=== PATIENT | female | born 1945 | race Caucasian/White ===

== ENCOUNTER 2016-05-11 04:31 | Emergency (ER) | payer MEDICARE ==
--- NOTE | 2016-05-11 05:24 | ERPHSYRPT ---
- History of Present Illness Time Seen by Provider: 05/11/16 04:42 Source: patient Exam Limitations: no limitations Patient Subjective Stated Complaint: PT FELL FROM STANDING HEIGHT ONTO FLOOR STRIKING RT SHOULDER AND RT HIP. PT STS PAIN IN RT SHOULDER AND RT HIP. PT RATES PAIN 8/10. PT RECENTLY FELL AND INJURED LEFT SHOULDER AND LEFT HIP APPROX 1 MONTH AGO. Triage Nursing Assessment: PT ALERT, ORIENTED, ANSWERS ALL QUESITONS APPROPRIATELY. SKIN P/W/D, RESPS NON-LABORED. SPO2 90% ROOM AIR, PT PLACED ON 2LO2 PER NC AT TRIAGE, SPO2 INCREASED TO 96%. DEFORMITY NOTED TO RT SHOULER. PAIN UPON PALPATION POSTERIOR RT SHOULDER. + RADIAL PULSE NOTED, CAPILLARY REFILL LESS THAN 3 SECONDS. PT ABLE TO MOVE FINGERS. NO OBVIOUS SHORTENING OR ROTATION NOTED TO RT LEG. PT ABLE TO MOVE FOOT, TOES. + PEDAL PULSES NOTED BILAT. Physician History: ABOUT 30 MINUTES AGO PT [facility] AND WAS WALKING TO THE BATHROOM WHEN HER RIGHT LEG "GAVE OUT" AND SHE FELL HITTING HER RIGHT SHOULDER AND RIGHT HIP WITH RESULTANT RIGHT SHOULDER, HIP AND KNEE PAIN; DENIES NUMBNESS AND DENIES PRIOR INJURY TO THE RIGHT SHOULDER/HIP/KNEE. PT DENIES LOC, SEIZURE, VOMITING, HEADACHE, CHEST PAIN, SHORTNESS OF AIR. Allergies/Adverse Reactions: ibuprofen Allergy (Verified 05/11/16 06:36) Home Medications: Acetaminophen 325 mg [Tylenol 325 mg] 650 mg PO Q4H PRN PRN 05/11/16 [ History] Albuterol Sulfate [Albuterol Sulfate Hfa] 2 inh IH Q4H PRN PRN 05/11/16 [History ] Amlodipine Besylate 5 mg [Norvasc 5 mg] 5 mg PO DAILY 05/11/16 [History] Aspirin 81 mg PO DAILY 05/11/16 [History] Carvedilol 6.25 mg [Coreg 6.25 MG] 6.25 mg PO BID 05/11/16 [History] Fluticasone/Vilanterol [Breo Ellipta 100-25 Mcg INH] 1 each IH DAILY 05/11/16 [ History] Folic Acid 1 mg PO DAILY 05/11/16 [History] Gabapentin 300 mg PO HS 05/11/16 [History] Glipizide [Glipizide ER] 10 mg PO DAILY 05/11/16 [History] Hydrocodone Bit/Acetaminophen [Hydrocodon-Acetaminophen 5-325] 1 each PO TID [History] Ibandronate Sodium 150 mg PO 05/11/16 [History] Isosorbide Mononitrate [Isosorbide Mononitrate ER] 30 mg PO DAILY 05/11/16 [ History] Magnesium Hydroxide [Milk of Magnesia] 30 ml PO 05/11/16 [History] Metformin HCl 500 mg PO BID 05/11/16 [History] Solifenacin Succinate [Vesicare] 5 mg PO DAILY 05/11/16 [History] Hx Tetanus, Diphtheria Vaccination/Date Given: Yes Hx Influenza Vaccination/Date Given: Yes Hx Pneumococcal Vaccination/Date Given: Yes Immunizations Up to Date: Yes - Review of Systems Musculoskeletal: Other (RIGHT SHOULDER/HIP/KNEE PAIN.) All Other Systems: Reviewed and Negative - Past Medical History Neurological History: Peripheral Neuropathy Cardiac History: Myocardial Infarction (MD) Respiratory History: Asthma, COPD Endocrine Medical History: Diabetes Type II Musculoskeletal History: Osteoarthritis Other Medical History: PT FELL 2014 IN THE KITCHEN AND FRACTURED BACK, L TKA, OAB - Past Surgical History Past Surgical History: Yes Other Surgical History: LEFT SHOULDER, LEFT FEMUR, LEFT TOTAL KNEE - Social History Smoking Status: Never smoker Exposure to second hand smoke: No Drug Use: none Patient Lives Alone: No - Nursing Vital Signs Nursing Vital Signs: Initial Vital Signs Temperature 98.3 F Temperature Source Oral Pulse Rate 80 Respiratory Rate 18 Blood Pressure [] 155/73 Pain Intensity 8 - Azeb Coma Score Best Eye Response (Azeb): (4) open spontaneously Best Verbal Response (Azeb): (5) oriented Best Motor Response ([place]): (6) obeys commands Azeb Total: 15 - Physical Exam General Appearance: alert Head Injury: no evidence of injury Eye Exam: PERRL/EOMI ENT Exam: airway nml, hearing grossly normal Neck Exam: trachea midline, No tenderness Respiratory/Chest Exam: normal breath sounds Cardiovascular Exam: murmur (2/6 SYSTOLIC MURMUR) Gastrointestinal Exam: soft, normal bowel sounds Back Exam: normal inspection, No vertebral tenderness Extremity Exam: tenderness (MILD TENDERNESS OVER THE RIGHT SHOULDER AND KNEE WITH MILD EDEMA OF THE RIGHT SHOULDER.), other (NO ROM OF THE RIGHT SHOULDER; FLEXION OF THE RIGHT HIP AND KNEE LIMITED TO 50%. GOOD SENSATION, CAPILLARY REFILL AND ROM OF THE RIGHT FOOT AND RIGHT HAND.) Neurologic Exam: alert, cooperative Skin Exam: warm, dry SpO2 Interpretation: borderline oxygenation SpO2: 90 Oxygen Delivery: Room Air - Course Nursing assessment & vital signs reviewed: Yes EKG Interpreted by Me: RATE ([id number]), Sinus Rhythm, NORMAL AXIS, NORMAL INTERVALS - Radiology Exams Right Shoulder X-ray Interpretation: Interpreted by me (FRACTURED PROXIMAL RIGHT HUMERUS) Right Femur X-ray Interpretation: Interpreted by me (SUBCAPITAL FRACTURE OF RIGHT HIP) Right Pelvis X-ray Interpretation: Interpreted by me (SUBCAPITAL FRACTURE OF RIGHT HIP) Right Knee X-ray Interpretation: Interpreted by me, No Fracture Ordered Tests: Active Orders 24 hr Category Date Time Status Cath [Catheter-Holden Foreman] STAT Care 05/11/16 06:35 Active EKG-ER Only STAT Care 05/11/16 05:26 Active IV Insertion STAT Care 05/11/16 05:26 Active Oxygen-ED Only NASAL CANNULA 2 lpm Care 05/11/16 05:28 Active Pulse Oximetry (ED) STAT Care 05/11/16 05:28 Active CHEST 1 VIEW (PORTABLE) Stat Exams 05/11/16 05:27 Ordered FEMUR Stat Exams 05/11/16 04:50 Ordered KNEE (3 VIEWS) Stat Exams 05/11/16 04:50 Ordered PELVIS (1 OR 2 VIEWS) Stat Exams 05/11/16 04:50 Ordered SHOULDER Stat Exams 05/11/16 04:50 Ordered AMYLASE Stat Lab 05/11/16 05:25 Completed CBC W DIFF Stat Lab 05/11/16 05:25 Completed CMP Stat Lab 05/11/16 05:25 Completed LIPASE Stat Lab 05/11/16 05:25 Completed TROPONIN Stat Lab 05/11/16 05:26 Completed UA W/ MICROSCOPIC Stat Lab 05/11/16 06:30 Results Medication Summary Generic Name Dose Route Start Last Admin Trade Name Freq PRN Reason Stop Dose Admin Sodium Chloride 1,000 mls @ 100 mls/hr 05/11/16 05:30 05/11/16 06:25 Sodium Chloride 0.9% 1000 Ml IV 06/10/16 05:29 100 mls/hr .Q10H SUBHASH Administration Discontinued Medications Generic Name Dose Route Start Last Admin Trade Name Freq PRN Reason Stop Dose Admin Sodium Chloride Confirm 05/11/16 06:24 Sodium Chloride 0.9% 1000 Ml Administered 05/11/16 06:25 Dose 1,000 mls @ .ROUTE .[facility] Lab/Rad Data: Laboratory Result Diagrams 05/11/16 05:25 05/11/16 05:25 Laboratory Results 05/11/16 05/11/16 05/11/16 Range/Units 06:30 05:26 05:25 WBC (4.0-10.5) K/mm3 RBC (4.1-5.4) M/mm3 Hgb (12.0-16.0) gm/dl Hct (35-47) % MCV (78-100) fl MCH (26-32) pg MCHC (32-36) g/dl RDW (11.5-14.0) % Plt Count (150-450) K/mm3 MPV (6-9.5) fl Gran % (36.0-66.0) % Lymphocytes % (24.0-44.0) % Monocytes % (0.0-12.0) % Eosinophils % (0.00-5.0) % Basophils % (0.0-0.4) % Basophils # (0-0.4) Sodium 141 (136-145) mEq/L Potassium 4.3 (3.5-5.1) mEq/L Chloride 103 (98-107) mEq/L Carbon Dioxide 26.9 (21-32) mEq/L Anion Gap 15.2 H (5-15) MEQ/L BUN 12 (9-20) mg/dL Creatinine 0.66 (0.55-1.30) mg/dl Estimated GFR > 60 ML/MIN Glucose 134 H (70-110) MG/DL Calcium 9.0 (8.5-10.1) mg/dL Total Bilirubin 0.6 (0.2-1.0) mg/dL AST 14 L (15-37) U/L ALT 16 (12-78) U/L Alkaline Phosphatase 78 (46-116) U/L Troponin I < 0.017 (0.000-0.056) ng/ml Serum Total Protein 7.0 (6.4-8.2) gm/dL Albumin 3.3 L (3.4-5.0) g/dL Amylase 30 (25-115) U/L Lipase 211 (73-393) U/L Ur Collection Type Pending Urine Color Pending Urine Appearance Pending Urine pH Pending Ur Specific [place] Pending Urine Protein Pending Urine Glucose (UA) Pending Urine Ketones Pending Urine Nitrite Pending Urine Bilirubin Pending Urine Urobilinogen Pending Urine WBC (Auto) Pending Urine RBC (Auto) Pending Specimen Received Pending 05/11/16 Range/Units 05:25 WBC 9.1 (4.0-10.5) K/mm3 RBC 4.02 L (4.1-5.4) M/mm3 Hgb 10.1 L (12.0-16.0) gm/dl Hct 34.2 L (35-47) % MCV 85.1 (78-100) fl MCH 25.1 L (26-32) pg MCHC 29.5 L (32-36) g/dl RDW 15.2 H (11.5-14.0) % Plt Count 298 (150-450) K/mm3 MPV 10.0 H (6-9.5) fl Gran % 77.4 H (36.0-66.0) % Lymphocytes % 12.7 L (24.0-44.0) % Monocytes % 9.6 (0.0-12.0) % Eosinophils % 0.2 (0.00-5.0) % Basophils % 0.1 (0.0-0.4) % Basophils # 0.01 (0-0.4) Sodium (136-145) mEq/L Potassium (3.5-5.1) mEq/L Chloride (98-107) mEq/L Carbon Dioxide (21-32) mEq/L Anion Gap (5-15) MEQ/L BUN (9-20) mg/dL Creatinine (0.55-1.30) mg/dl Estimated GFR ML/MIN Glucose (70-110) MG/DL Calcium (8.5-10.1) mg/dL Total Bilirubin (0.2-1.0) mg/dL AST (15-37) U/L ALT (12-78) U/L Alkaline Phosphatase (46-116) U/L Troponin I (0.000-0.056) ng/ml Serum Total Protein (6.4-8.2) gm/dL Albumin (3.4-5.0) g/dL Amylase (25-115) U/L Lipase (73-393) U/L Ur Collection Type Urine Color Urine Appearance Urine pH Ur Specific [place] Urine Protein Urine Glucose (UA) Urine Ketones Urine Nitrite Urine Bilirubin Urine Urobilinogen Urine WBC (Auto) Urine RBC (Auto) Specimen Received - Progress Discussed with .: Other (SPOKE WITH DR DOOLEY(TRAUMA)([id number]) WHO REQUESTS PT BE SENT TO [facility]. SPOKE WITH DR PRECIADO(ER DR)([id number]) WHO ACCEPTED PT FOR TRANSFER TO [facility].) - Departure Time of Disposition: 06:45 Departure Disposition: Transfer ([facility]) Clinical Impression: FRACTURED RIGHT SHOULDER AND RIGHT HIP, COPD, ASTHMA, DM, ARTHRITIS Condition: Fair Critical Care Time: No Referrals: ALFREDA SHOOK [Primary Care Provider] -
[2016-05-11 05:29] LABS: BASOPHIL % 0.1 % (0.0-0.4); Eosinophil % 0.2 % (0.00-5.0); Granulocytes % 77.4 % (36.0-66.0); Lymphocytes % 12.7 % (24.0-44.0); Mean Cell Volume 85.1 fl (78-100); Mean Corpuscular Hemoglobin 25.1 pg (26-32); Monocytes % 9.6 % (0.0-12.0); Platelet Count 298 K/mm3 (150-450); Red Blood Count 4.02 M/mm3 (4.1-5.4); Red Cell Distribution Width 15.2 % (11.5-14.0); White Blood Count 9.1 K/mm3 (4.0-10.5)
[2016-05-11] MEDS ORDERED: Sodium Chloride 0.9% 1000 ML 1,000 ML IV SCH (05:30)
[2016-05-11 05:50] LABS: ALBUMIN 3.3 g/dL (3.4-5.0); ALKALINE PHOSPHATASE 78 U/L (46-116); ANION GAP 15.2 MEQ/L (5-15); BILIRUBIN,TOTAL 0.6 mg/dL (0.2-1.0); BLOOD UREA NITROGEN 12 mg/dL (9-20); CHLORIDE 103 mEq/L (98-107); Carbon Dioxide 26.9 mEq/L (21-32); Glucose 134 MG/DL (70-110); LIPASE 211 U/L (73-393); Potassium 4.3 mEq/L (3.5-5.1); SGOT/AST 14 U/L (15-37); SGPT/ALT 16 U/L (12-78); SODIUM 141 mEq/L (136-145)
[2016-05-11] MEDS ORDERED: Sodium Chloride 0.9% 1000 ML 1,000 ML ONE (06:24)
[2016-05-11 06:38] LABS: Collection Type CATH
[2016-05-11 06:39] LABS: COMPLETE URINE MICROSCOPIC? YES
[2016-05-11 06:42] VITALS: BP 155/73
[2016-05-11 06:45] VITALS: O2SAT 90
[2016-05-11] MEDS ORDERED: Hydromorphone 1 mg/ml Ampule IV ONE (06:45)
[2016-05-11] MEDS ORDERED: Phenergan 25 MG INJ IV ONE (06:45)
[2016-05-11 06:46] VITALS: PULSE 81
[2016-05-11 06:46] LABS: WBC 25-50 /HPF (0-5)
[2016-05-11 06:47] LABS: Bacteria FEW /HPF (NEGATIVE); Epithelial Cells MANY /HPF (FEW)
[2016-05-11] MEDS ORDERED: Phenergan 25 MG INJ ONE (06:48)
[2016-05-11] MEDS ORDERED: Hydromorphone 1 mg/ml Ampule ONE ×2 (06:48→07:07)
[2016-05-11] MEDS ORDERED: ROCEPHIN 1 Gm-D5w 50 ml Bag** 50 ML IV ONE ×2 (06:52→06:53)
--- NOTE | 2016-05-11 09:14 | XRAY ---
Indication: Pain following fall. Comparison: None Single AP right shoulder demonstrates complete humeral neck fracture with the humeral shaft displaced medially. Elsewhere osteopenia, AC degenerative arthropathy, and previous T5 kyphoplasty.
--- NOTE | 2016-05-11 09:16 | XRAY ---
Indication: Pain following fall. Comparison: None 2 views of the right femur demonstrates minimally displaced femur neck acute fracture. Elsewhere osteopenia, acetabular spurring, mild knee degenerative changes, and scattered vascular calcifications.
--- NOTE | 2016-05-11 09:16 | XRAY ---
Indication: Pain following fall. Comparison: None Single AP pelvis demonstrates minimally displaced right femur neck acute fracture. Elsewhere osteopenia, bilateral acetabular spurring, old left proximal femur fracture with intact orthopedic hardware, lower lumbar degenerative changes, and scattered vascular calcifications.
--- NOTE | 2016-05-11 09:19 | XRAY ---
Indication: Pain following fall. Comparison: None 3 views of the right knee intact with mild tricompartmental degenerative changes, osteopenia, and scattered vascular calcifications. No other bony, articular, or soft tissue abnormalities.
--- NOTE | 2016-05-11 09:21 | XRAY ---
Indication: Low oxygenation. Status post fall. Comparison: None Portable chest hyperinflated with a few calcific granulomas. No focal infiltrate, consolidation, or large effusion. Heart is not enlarged. Bony thorax demonstrates osteopenia, degenerative changes, T5 kyphoplasty, old left rib fractures, and partially visualized old left humeral fracture with orthopedic hardware. Right humeral acute fracture reported separately. Impression: Right humeral acute fracture reported separately. No acute cardiopulmonary abnormalities. Incidental chronic findings.
== END 2016-05-11 07:12 | disposition short-term general hospital (02) ==
LOC: ED 04:31
DX: S42.91XA Fracture of right shoulder girdle, part unspecified, initial encounter for closed fracture (principal); S72.001A Fracture of unspecified part of neck of right femur, initial encounter for closed fracture; M25.511 Pain in right shoulder; M25.551 Pain in right hip; M25.561 Pain in right knee; W18.39XA Other fall on same level, initial encounter; Y92.128 Other place in nursing home as the place of occurrence of the external cause
CPT/HCPCS: 36000; 36415; 51702; 71010; 72170; 73030; 73552; 73562; 80053; 81000; 82150; 83690; 84484; 85025; 87077; 87086; 93005; 96360; 96361; 96365; 99284; J0696; J1170; J2550